=== PATIENT | female | born 1985 | race Caucasian/White ===

== ENCOUNTER 2019-08-01 03:15 | Emergency (ER) | payer OTHER ==
[~2019-08-01] VITALS: Ht 157.5 cm; Wt 76.4 kg
[2019-08-01 03:39] VITALS: BP 133/22
[2019-08-01] MEDS ORDERED: LORA0.5T83 PO (04:04)
[2019-08-01] MEDS ORDERED: IBUPROFEN 600 MG TABLET PO ONE (08:15)
== END 2019-08-01 08:10 | disposition home or self-care (01) ==
LOC: EMS 03:18
DX: M26.602 Left temporomandibular joint disorder, unspecified (principal); Z88.8 Allergy status to other drugs, medicaments and biological substances